=== PATIENT | female | born 1970 | race Caucasian/White ===

== ENCOUNTER 2025-05-13 10:00 | Day surgery (SDC) | payer OTHER ==
[2025-05-13] MEDS ORDERED: fentaNYL CITRATE 50 MCG/ML AMPUL IV PUSH ONE (14:30)
[2025-05-13] MEDS ORDERED: DIPHENHYDRAMINE HCL 50 MG/ML VIAL 1ML IV ONE (14:30)
[2025-05-13] MEDS ORDERED: MIDAZOLAM HCL 2 MG/2 ML VIAL IV ONE (14:30)
== END 2025-05-13 15:40 | disposition home or self-care (01) ==
LOC: AMB-ENDOS 10:00
PROVIDERS: ATTEND Internal Medicine
DX: K63.5 Polyp of colon (principal); Z86.0100 Personal history of colon polyps, unspecified; K57.30 Diverticulosis of large intestine without perforation or abscess without bleeding